=== PATIENT | male | born 1995 | race Hispanic/Latino ===

== ENCOUNTER 2021-12-11 10:48 | Emergency (ER) | payer SELFPAY ==
--- NOTE | ~2021-12-11 | CT_ITS ---
EXAMINATION: CTA chest PE abdomen pel DATE: 12/11/2021 13:23 INDICATION: Left chest pain. TECHNIQUE: Computed tomography angiography (CTA) of the chest was performed with 100 mL Omnipaque-350 intravenous contrast timed to evaluate the pulmonary arteries. Coronal maximum intensity projection 3D-reconstructions were created by the technologist. Computed tomography (CT) of the abdomen and pelv is was performed with intravenous contrast. Automated exposure control and iterative reconstruction t echnique were employed. The dose-length product was 505.92 mGy-cm. COMPARISON: Chest 2 views 12/11/2021 FINDINGS: CTA chest: There is mild scarring at the lung apices. There is minimal atelectasis in right middle lo be. No pleural effusion. The heart size is normal. No pericardial effusion. There is no pulmonary emb olus. There is mild bilateral hilar lymphadenopathy, likely reactive. There are fractures of left fif th, sixth, and seventh ribs. CT abdomen and pelvis: The liver, gallbladder, spleen, pancreas, adrenal glands, and kidneys are norm al. There are no dilated loops of bowel. There are no dilated loops of bowel. The appendix is normal. There are no pathologically enlarged lymph nodes. There is no free intraperitoneal fluid. The bones are unremarkable. IMPRESSION: 1. Acute fractures of left fifth-seventh ribs. Reviewed, dictated and finalized at location A.
--- NOTE | ~2021-12-11 | XR_ITS ---
EXAMINATION: XR chest 2V DATE: 12/11/2021 11:57 INDICATION: Left-sided chest pain TECHNIQUE: PA and lateral views of the chest are obtained. COMPARISON: None available FINDINGS: The lungs are free of acute opacities. No pleural effusion or pneumothorax. The cardiomedia stinal silhouette is normal. The visualized bones and soft tissues are unremarkable. IMPRESSION: 1. No acute cardiopulmonary abnormality. Reviewed, dictated and finalized at location A.
--- NOTE | 2021-12-11 11:05 | ECG_ITS ---
Measurements Intervals [place] Rate: 68 P: 51 [place]: 144 QRS: 35 QRSD: 89 T: 37 QT: 377 QTc: 403 Interpretive Statements SINUS RHYTHM ST ELEVATION IN DIFFUSE LEADS- CONSIDER EARLY REPOLARIZATION OR PERICARDITIS BASELINE ARTIFACT- I, II, III, AVR, AVL, AVF, V1-V6 ABNORMAL ECG NO PREVIOUS ECG AVAILABLE FOR COMPARISON Electronically Signed On 12-11-2021 11:45:28 CDT by Juancho Morgan D.O.
[2021-12-11 11:21] VITALS: BP 107/69; PULSE 69; RESP 18; TEMP 36.7; O2SAT 100
[2021-12-11 11:35] LABS: Basophils Percent Auto 0.7 % (0.2-1.2); Eosinophils Absolute Auto 0.2 K/mm3 (0-0.3); Eosinophils Percent Auto 3.5 % (0-4.4); Hematocrit 43.7 % (42.0-52.0); Hemoglobin 14.8 g/dL (14.0-18.0); Immature Granulocyte Absolute 0.02 K/mm3 (0.00-0.031); Immature Granulocyte Percent A 0.4 % (0-0.5); Lymphocytes Absolute Auto 1.58 K/mm3 (0.9-3.2); Lymphocytes Percent Auto 29.3 % (18.3-44.2); Mean Corpuscular HGB Conc 33.9 g/dl (32-36); Mean Corpuscular Hemoglobin 30.4 pg (26-34); Mean Corpuscular Volume 89.7 fl (80-100); Mean Platelet Volume 9.5 fl (7.4-10.4); Monocytes Absolute Auto 0.5 K/mm3 (0.1-0.6); Monocytes Percent Auto 8.5 % (2.6-8.5); Neutrophils Absolute Auto 3.1 K/mm3 (1.3-6.7); Neutrophils Percent Auto 57.6 % (45.5-73.1); Platelet Count Result 315 k/mm3 (150-375); Red Blood Count 4.87 M/mm3 (4.6-6.20); Red Cell Distribution Width 13.6 % (11.5-14.5); White Blood Count 5.4 K/mm3 (4.5-10.0)
[2021-12-11 11:46] LABS: Alanine Aminotransferase 32 U/L (6-50); Albumin Level 4.7 g/dL (3.5-5.1); Alkaline Phosphatase 115 U/L (38-126); Anion Gap 11 mmol/L (8-16); Aspartate Amino Transferase 43 U/L (17-59); Bilirubin,Total 0.4 mg/dL (0.2-1.3); Blood Urea Nitrogen 10 mg/dL (9-20); Calcium 9.2 mg/dL (8.4-10.2); Carbon Dioxide 28 mmol/L (22-30); Chloride 102 mmol/L (98-107); Estimated CRCL calculation 105 ml/min; Estimated Glomerular Filt Rate > 60; Glucose 110 mg/dL (65-110); Lipase 118 U/L (23-300); Sodium 141 mmol/L (137-145)
[2021-12-11 11:58] LABS: Troponin I 0.029 ng/mL (0.000-0.034)
[2021-12-11 11:59] LABS: INR 1.1; Partial Thromboplastin Time 27.9 SECONDS (22.3-36.8); Prothrombin Time 13.6 Seconds (11.1-14.7)
[2021-12-11 12:35] VITALS: BP 108/70; PULSE 78; RESP 18; O2SAT 99
[2021-12-11] MEDS: KETOROLAC 15 MG/ML VIAL (*BKC) IV PUSH (12:45)
[2021-12-11 12:56] LABS: D Dimer 1.05 ug/mL (<0.48)
[2021-12-11 12:57] LABS: Appearance Urine Clear (Clear); Bilirubin Urine Negative (Negative); Blood Urine Negative (Negative); Color Urine Yellow (Yellow); Glucose Urine UA Negative (Negative); Ketones Urine Trace mg/dL (Negative); Leukocyte Esterase Ur Negative LEU/UL (Negative); Nitrate Urine Negative (Negative); Protein Urine Negative (Negative); Specific Grav Ur >= 1.030 (1.001-1.035)
[2021-12-11 13:00] LABS: Mucus Urine Few /lpf; RBC Urine 0-2 /hpf (0-2); WBC Urine 0-3 /hpf
[2021-12-11 13:03] LABS: Add Urine Microscopic? YES
[2021-12-11] MEDS: LACTATED RINGERS 1,000 ML 999 ML IV CONT (13:31)
--- NOTE | 2021-12-11 13:37 | ED.CHESTPAIN ---
HPI - Chest Pain General Chief Complaint: Chest Pain Stated Complaint: L LATERAL CHEST PAIN [id number] Time Seen by Provider: 12/11/21 12:03 Source: patient Mode of arrival: ambulatory Limitations: no limitations History of Present Illness HPI narrative: This is a 26 year old male who presents for evaluation of left lower chest pain for 2 days. He states he woke up with pain to his left chest. He denies any injury to the area. His pain is worse with movement and breathing. He denies URI symptoms, shortness of breath, nausea, vomiting, fever, chills , dysuria or hematuria. He has not taken any medication for his pain. Timing of current episode: constant and still present Pain location: lateral Pain radiation: none Severity: moderate Pain scale (0-10): 6 Relieving factors: nothing Exacerbating factors: inspiration and movement Treatment prior to arrival: none Related Data Allergies Allergy/AdvReac Type Severity Reaction Status Date / Time No Known Allergies Allergy Verified 12/11/21 11:25 Review of Systems Review of Systems: CONSTITUTIONAL: Denies fever, chills, or sweats. EYES: Denies visual changes, redness, or discharge. ENT: Denies rhinorrhea, congestion, sore throat, or otalgia. CARDIOVASCULAR: Denies palpitations, or edema. RESPIRATORY: Denies cough or dyspnea. GASTROINTESTINAL: Denies abdominal pain, nausea, vomiting, or diarrhea. GENITOURINARY: Denies dysuria or hematuria. SKIN: Denies rash or itching. MUSCULOSKELETAL: Denies back pain, joint pain, or myalgia. NEUROLOGIC: Denies headache, numbness, or weakness. PSYCHIATRIC: Denies anxiety or depression. PMFSH Past Medical History Medical History (Updated 12/11/21 @ 13:58 by Lucila Tanner MD) Patient denies medical problems Surgical History Surgical History (Updated 12/11/21 @ 13:42 by Lucila Tanner MD) No pertinent past surgical history Social History Social History (Updated 12/11/21 @ 13:42 by Lucila Tanner MD) Smoking status: Never smoker Alcohol intake: former Substance use: never Exam Const: General: alert Nutritional Appearance: well nourished Orientation/consciousness: patient oriented x3 Limitations: no limitations HENMT: Head: normal to inspection Eyes: EOM: EOMs intact bilaterally Chest: Chest palpation & inspection: normal inspection of the chest Resp: Effort & Inspection: normal respiratory effort Auscultation: clear to auscultation bilaterally Cardio: Rate: regular rate Rhythm: regular rhythm Heart sounds: no murmurs GI: GI Palp: Yes Soft to palpation, Yes Tenderness to palpation present (GI) (left flank, LUQ), No Guarding due to palpation present (GI) and No Rigid due to palpation Auscultation: normal bowel sounds Skin: General skin exam: normal color Rashes: no rashes Wounds: no wounds Neuro: General: patient oriented x3, moves all extremities and CN's II-XI intact bilaterally Extrem: General: normal to inspection Psych: Mental Status: mental status grossly normal Affect: normal affect Attitude: cooperative Course Reevaluation(s) Reevaluation #1: I discussed with patient CT results using historical interpreter. I reviewed discharge plan and return to ER. He states his pain has improved after toradol that was given. Date: 12/11/21 Time: 13:53 Vital Signs Vital signs: Vital Signs Temperature 98.1 F 12/11/21 11:21 Pulse Rate 69 12/11/21 11:21 Respiratory Rate 18 12/11/21 11:21 Blood Pressure 107/69 12/11/21 11:21 Pulse Oximetry 100 12/11/21 11:21 Oxygen Delivery Room Air 12/11/21 11:21 Temperature 98.1 F 12/11/21 11:21 Pulse Rate 60 12/11/21 14:36 Respiratory Rate 18 12/11/21 14:36 Blood Pressure 108/70 12/11/21 14:36 Pulse Oximetry 99 12/11/21 14:36 Oxygen Delivery Room Air 12/11/21 11:21 MDM - Chest Pain Lab Data Attestation: I reviewed the patient's lab results. Result diagrams: 12/11/21 11:29 12/11/21 11:29
[2021-12-11 14:36] VITALS: BP 108/70; PULSE 60; RESP 18; O2SAT 99
== END 2021-12-11 14:38 | disposition home or self-care (01) ==
PROVIDERS: Emergency Medicine; Emergency Provider General Practice
DX: S22.42XA Multiple fractures of ribs, left side, initial encounter for closed fracture (principal); R94.31 Abnormal electrocardiogram [ECG] [EKG]; X58.XXXA Exposure to other specified factors, initial encounter
CPT/HCPCS: 36415; 71046; 71275; 74177; 80053; 81001; 83690; 84484; 85025; 85380; 85610; 85730; 93005; 96361; 96374; 99284; J1885; J7120; Q9967